=== PATIENT | female | born 1945 | race Caucasian/White ===

== ENCOUNTER → 2017-08-07 | Outpatient (CLI) | payer OTHER | END | disposition home or self-care (01) | LOC: C.PATHSPEC 14:56 | PROVIDERS: ATTEND Urology | DX: R31.0 Gross hematuria (principal); N28.1 Cyst of kidney, acquired ==

== ENCOUNTER → 2017-10-23 | Outpatient (CLI) | payer OTHER ==
[~2017-10-23] MED LIST: ASPI81TA28 PO; ATOR10TA82 PO; CIPR-255 PO; CLR10 PO; CRAN405C3 PO; CYAN100020 PO; DOCU100C PO; FLUT1INH INH; FLX10 PO; FRRS300 PO; GLUC1CAP35 PO; KLN/5 PO; MONT1TAB3 PO; MORP15TA PO; OXYC-90 PO; PHEN95TA14 PO; PRLSR20 PO; PRVHFAIN INH; SERT-234 PO; VTMD1000 PO
== END | disposition home or self-care (01) ==
LOC: C.LABSPEC 15:26
PROVIDERS: ATTEND Urology
DX: R31.0 Gross hematuria (principal)